=== PATIENT | male | born 1985 | race American Indian/Alaskan Native ===

== ENCOUNTER 2021-06-02 18:40 | Emergency (ER) | payer MEDICAID ==
[2021-06-02] MEDS ORDERED: ASPIRIN 325 MG TAB PO ONE (20:02)
[2021-06-02] MEDS ORDERED: ONDANSETRON 4 MG ODT TAB PO ONE (20:02)
[2021-06-02] MEDS ORDERED: FAMOTIDINE 20 MG/2 ML INJ IV ONE (20:02)
--- NOTE | 2021-06-02 20:31 | XRay Report ---
. XR chest 1V ap INDICATION / CLINICAL INFORMATION: CHEST PAIN. COMPARISON: None available. FINDINGS: SUPPORT DEVICES: None. HEART /PULMONARY VASCULATURE: No significant abnormality. LUNGS / PLEURA: No significant pulmonary or pleural abnormality. No pneumothorax. ADDITIONAL FINDINGS: No significant additional findings. IMPRESSION: 1. No acute findings. Signer Name: Serg Vicente MD Signed: 06/02/2021 8:26 PM Workstation Name: [id number]
[2021-06-02 20:34] LABS: Bilirubin,Urine NEG (Negative); Blood,Urine NEG (Negative); Color,Urine Yellow (Yellow); Mucus,Urine 3+ /HPF
[2021-06-02 21:00] LABS: Basophils # (Auto) 0.1 K/mm3 (0.0-0.1); Basophils % (Auto) 0.6 % (0.0-1.8); Eosinophils # (Auto) 0.1 K/mm3 (0.0-0.4); Eosinophils % (Auto) 0.7 % (0.0-4.3); Hematocrit 45.5 % (35.5-45.6); Hemoglobin 15.2 gm/dl (11.8-15.2); Lymphocytes # (Auto) 2.1 K/mm3 (1.2-5.4); Mean Corpuscular HGB Conc 33 % (32-34); Mean Corpuscular Volume 84 fl (84-94); Monocytes # (Auto) 0.5 K/mm3 (0.0-0.8); Monocytes % (Auto) 5.1 % (0.0-7.3); Platelet Count 291 K/mm3 (140-440); Red Blood Count 5.41 M/mm3 (3.65-5.03); Red Cell Distribution Width 15.1 % (13.2-15.2)
[2021-06-02 21:20] LABS: Alanine Aminotransferase 16 units/L (7-56); Albumin 4.5 g/dL (3.9-5); BUN/Creatinine Ratio 7; Blood Urea Nitrogen 8 mg/dL (9-20); Calcium 9.5 mg/dL (8.4-10.2); Hemolysis Index 90
--- NOTE | 2021-06-02 21:20 | Emergency Department Report ---
ED General Adult HPI - General Chief complaint: Weakness Stated complaint: ANXIETY/HYPERTENSION/DIARRHEA/PANIC Source: patient, EMS Mode of arrival: Stretcher Limitations: No Limitations - History of Present Illness Initial comments: Patient is a 35-year-old -[place] male with a history of hypertension, GERD, and seizures who presents to the ED with complaint of acute onset persistent intermittent nausea, diarrhea, mild dry cough, chest tightness for the last 5 days. Patient states that his symptoms got worse in the last 2 days and he felt scared and afraid. Patient denies dizziness, syncope, chest pain, shortness of breath, abdominal pain, vomiting, fever, chills, sore throat, nasal and sinus congestion, dysuria, urinary frequency and urgency or neck pain. MD Complaint: Nausea, diarrhea, dry cough, chest tightness, anxiety and headache -: Sudden, days(s) (5) Location: chest Severity scale (0 -10): 5 Quality: aching, dull Improves with: none Worsens with: none Associated Symptoms: denies other symptoms, cough, loss of appetite, malaise, nausea/vomiting, shortness of breath. denies: confusion, chest pain, diaphoresis, fever/chills, headaches, rash, seizure, syncope, weakness, other Treatments Prior to Arrival: none - Related Data Home Medications Medication Instructions Recorded Confirmed Last Taken FLUoxetine 20 mg PO QAM 06/02/21 06/02/21 06/02/21 20 mg Keppra 500 mg PO BID 06/02/21 06/02/21 06/02/21 500 mg Omeprazole 20 mg PO QDAY 06/02/21 06/02/21 06/02/21 20 mg Vitamin D2 50 mcg PO QAM 06/02/21 06/02/21 06/02/21 1 Previous Rx's Medication Instructions Recorded Last Taken Type Famotidine [Pepcid] 20 mg PO BID #60 tablet 06/02/21 Unknown Rx Omeprazole 40 mg PO DAILY #30 capsule. 06/02/21 Unknown Rx Ondansetron [Zofran Odt] 4 mg PO Q6HR PRN #15 tab.idalmis 06/02/21 Unknown Rx amLODIPine 10 mg PO DAILY #30 tab 06/02/21 Unknown Rx hydrOXYzine PAMOATE [Vistaril] 25 mg PO Q12HR PRN #60 capsule 06/02/21 Unknown Rx Allergies Allergy/AdvReac Type Severity Reaction Status Date / Time No Known Allergies Allergy Verified 06/02/21 20:56 ED Review of Systems ROS: Stated complaint: ANXIETY/HYPERTENSION/DIARRHEA/PANIC Other details as noted in HPI Constitutional: malaise, weakness. denies: chills, fever Eyes: denies: eye pain, eye discharge, vision change ENT: denies: ear pain, throat pain Respiratory: cough, shortness of breath. denies: wheezing Cardiovascular: denies: chest pain, palpitations Endocrine: no symptoms reported Gastrointestinal: nausea, diarrhea. denies: abdominal pain, vomiting Genitourinary: denies: urgency, dysuria Musculoskeletal: denies: back pain, joint swelling, arthralgia Skin: denies: rash, lesions Neurological: denies: headache, weakness, paresthesias Psychiatric: denies: anxiety, depression Hematological/Lymphatic: denies: easy bleeding, easy bruising ED Past Medical Hx - Medications Home Medications: Home Medications Medication Instructions Recorded Confirmed Last Taken Type FLUoxetine 20 mg PO QAM 06/02/21 06/02/21 06/02/21 History 20 mg Famotidine [Pepcid] 20 mg PO BID #60 tablet 06/02/21 Unknown Rx Keppra 500 mg PO BID 06/02/21 06/02/21 06/02/21 History 500 mg Omeprazole 20 mg PO QDAY 06/02/21 06/02/21 06/02/21 History 20 mg Omeprazole 40 mg PO DAILY #30 capsule. 06/02/21 Unknown Rx Ondansetron [Zofran Odt] 4 mg PO Q6HR PRN #15 tab.rapdis 06/02/21 Unknown Rx Vitamin D2 50 mcg PO QAM 06/02/21 06/02/21 06/02/21 History 1 amLODIPine 10 mg PO DAILY #30 tab 06/02/21 Unknown Rx hydrOXYzine PAMOATE [Vistaril] 25 mg PO Q12HR PRN #60 capsule 06/02/21 Unknown Rx ED Physical Exam - General Limitations: No Limitations General appearance: alert, in no apparent distress - Head Head exam: Present: atraumatic, normocephalic, normal inspection - Eye Eye exam: Present: normal appearance, PERRL, EOMI Pupils: Present: normal accommodation - ENT ENT exam: Present: normal exam, normal orophraynx, mucous membranes moist, TM's normal bilaterally, normal external ear exam - Neck Neck exam: Present: normal inspection, full ROM - Respiratory Respiratory exam: Present: normal lung sounds bilaterally. Absent: respiratory distress, wheezes, rales, rhonchi, chest wall tenderness, accessory muscle use, decreased breath sounds, prolonged expiratory - Cardiovascular Cardiovascular Exam: Present: regular rate, normal rhythm, normal heart sounds. Absent: systolic murmur, diastolic murmur, rubs, gallop - GI/Abdominal GI/Abdominal exam: Present: soft, normal bowel sounds. Absent: tenderness, guarding, rebound, hyperactive bowel sounds, hypoactive bowel sounds, organomegaly - Extremities Exam Extremities exam: Present: normal inspection, full ROM, normal capillary refill - Back Exam Back exam: Present: normal inspection, full ROM. Absent: tenderness, CVA tenderness (R), CVA tenderness (L), muscle spasm, paraspinal tenderness, vertebral tenderness - Neurological Exam Neurological exam: Present: alert, oriented X3, CN II-XII intact, normal gait, reflexes normal - Psychiatric Psychiatric exam: Present: normal affect, normal mood, anxious - Skin Skin exam: Present: warm, dry, intact, normal color. Absent: rash ED Course Vital Signs 06/02/21 06/02/21 19:12 22:50 Temperature 97.6 F Pulse Rate 89 66 Respiratory 18 14 Rate Blood Pressure 160/104 121/73 [Left] O2 Sat by Pulse 98 99 Oximetry ED Medical Decision Making - Lab Data Result diagrams: 06/02/21 20:08 06/02/21 20:08 - Radiology Data Radiology results: report reviewed, image reviewed [address] [address] XRay Report Signed Patient: JAMI IRBY MR#: [id number] 12 : 1985 Acct:[id number] Age/Sex: 35 / M ADM Date: 06/02/21 Loc: ED Attending Dr: Ordering Physician: LUIS DANIEL AMIN Date of Service: 06/02/21 Procedure(s): XR chest routine 2V Accession Number(s): [id number] cc: LUIS DANIEL AMIN Fluoro Time In Minutes: . XR chest 1V ap INDICATION / CLINICAL INFORMATION: CHEST PAIN. COMPARISON: None available. FINDINGS: SUPPORT DEVICES: None. HEART /PULMONARY VASCULATURE: No significant abnormality. LUNGS / PLEURA: No significant pulmonary or pleural abnormality. No pneumoth orax. ADDITIONAL FINDINGS: No significant additional findings. IMPRESSION: 1. No acute findings. Signer Name: Makeda Zamorano MD Signed: 06/02/2021 8:26 PM Workstation Name: [id number] Transcribed By: ADRIANE Dictated By: MAKEDA ZAMORANO MD Electronically Authenticated By: MAKEDA ZAMORANO MD Signed Date/Time: 06/02/212025 DD/ 25 TD/TT: - Medical Decision Making This is a 35-year-old -[place] male with a history of hypertension, GERD, and seizures who presents to the ED with complaint of acute onset persistent intermittent nausea, diarrhea, mild dry cough, chest tightness for the last 5 days. Patient states that his symptoms got worse in the last 2 days and he felt scared and afraid. In the ED, patient is alert and oriented x3 and is not in any distress. Patient is however anxious and hypertensive in triage. Lab test results were reviewed and are all nonactionable. Chest x-ray showed no acute cardiopulmonary abnormalities or pneumonitis. Patient was treated in the ED with antacids, and also given antiemetics and anxiety medication. On reevaluation, patient felt better and was discharged home on medications and advised to follow-up with his primary care physician in 7 to 10 days for reevaluation. Patient was advised return to the ED immediately if symptoms get worse. - Differential Diagnosis Anxiety; GERD; viral gastroenteritis; Critical care attestation.: If time is entered above; I have spent that time in minutes in the direct care of this critically ill patient, excluding procedure time. ED Disposition Clinical Impression: Anxiety as acute reaction to exceptional stress, Nausea, vomiting and diarrhea, Nonspecific syndrome suggestive of viral illness Disposition: 01 HOME / SELF CARE / HOMELESS Is pt being admited?: No Does the pt Need Aspirin: No Condition: Stable Instructions: Nausea and Vomiting, Adult, [id number], Diarrhea, Adult, Easy-t o-Read Additional Instructions: All lab test results were reviewed and are all nonactionable. Chest x-ray showed no acute cardiopulmonary abnormalities or pneumonitis. Therefore take medication with food, drink plenty of fluids and follow-up with your primary care physician in 5 to 7 days for reevaluation. Return to the ED immediately if symptoms get worse. Prescriptions: amLODIPine 10 mg PO DAILY #30 tab Omeprazole 40 mg PO DAILY #30 capsule. Famotidine [Pepcid] 20 mg PO BID #60 tablet hydrOXYzine PAMOATE [Vistaril] 25 mg PO Q12HR PRN #60 capsule PRN Reason: Anxiety Ondansetron [Zofran Odt] 4 mg PO Q6HR PRN #15 tab.rapdis PRN Reason: Nausea Referrals: [facility] [Provider Group] - 3-5 Days Time of Disposition: 23:09 Print Language: ICELANDIC
[2021-06-02] MEDS ORDERED: clonazePAM 0.5 MG TAB PO ONE (21:59)
[2021-06-02 22:51] VITALS: BP 121/73
--- NOTE | 2021-06-03 10:36 | Electrocardiograph Report ---
[facility] Test Date: 2021-06-02 Test Time: 22:35:59 Pat Name: JAMI IRBY Department: Room: Gender: M Ex[employer]: : 1985 Requested By: LION BAUM Order Number: [id number] Reading MD: Daryl Correa Measurements Intervals [place] Rate: 65 P: 62 [place]: 140 QRS: 84 QRSD: 89 T: 7 QT: 387 QTc: 402 Interpretive Statements Sinus rhythm No previous ECG available for comparison Electronically Signed On 06-03-2021 10:36:14 EDT by Daryl Correa
== END 2021-06-03 00:35 | disposition home or self-care (01) ==
LOC: ED 18:40
DX: F41.1 Generalized anxiety disorder (principal); F43.0 Acute stress reaction; B34.9 Viral infection, unspecified; R11.2 Nausea with vomiting, unspecified; R19.7 Diarrhea, unspecified
CPT/HCPCS: 36415; 71046; 80053; 81001; 83690; 84484; 85025; 93005; 96374; 99284; Q0162

== ENCOUNTER 2021-11-28 18:08 | Emergency (ER) | payer MEDICAID ==
[2021-11-28] MEDS ORDERED: SODIUM CHLORIDE 0.9% 1000 ML 1,000 ML IV ONE (18:53)
[2021-11-28] MEDS ORDERED: ASPIRIN 325 MG TAB PO ONE (18:53)
[2021-11-28] MEDS ORDERED: ONDANSETRON 4 MG/2 ML INJ IV ONE (18:54)
[2021-11-28] MEDS ORDERED: MORPHINE 4 MG/1 ML INJ IV ONE (18:54)
--- NOTE | 2021-11-28 19:31 | XRay Report ---
CHEST 2 VIEWS INDICATION / CLINICAL INFORMATION: Chest Pain. COMPARISON: 06/02/2021 FINDINGS: SUPPORT DEVICES: Right TRAUMA REGISTRAR shunt catheter tubing again noted. HEART / MEDIASTINUM: No significant abnormality. LUNGS / PLEURA: No significant pulmonary or pleural abnormality. No pneumothorax. ADDITIONAL FINDINGS: No significant additional findings. IMPRESSION: 1. No acute findings. Signer Name: Loc Waters MD Signed: 11/28/2021 7:27 PM Workstation Name: [id number]
[2021-11-28 19:32] LABS: Basophils % (Auto) 0.6 % (0.0-1.8); Eosinophils % (Auto) 0.5 % (0.0-4.3); Hematocrit 42.2 % (35.5-45.6); Hemoglobin 14.2 gm/dl (11.8-15.2); Lymphocytes # (Auto) 1.4 K/mm3 (1.2-5.4); Lymphocytes % (Auto) 18.4 % (13.4-35.0); Mean Corpuscular HGB Conc 34 % (32-34); Mean Corpuscular Volume 82 fl (84-94); Monocytes # (Auto) 0.4 K/mm3 (0.0-0.8); Monocytes % (Auto) 5.1 % (0.0-7.3); Platelet Count 282 K/mm3 (140-440); Red Blood Count 5.12 M/mm3 (3.65-5.03); Red Cell Distribution Width 14.5 % (13.2-15.2)
[2021-11-28 19:44] LABS: INR 0.97 (0.87-1.13)
[2021-11-28 19:57] LABS: Alanine Aminotransferase 32 units/L (7-56); Albumin 4.3 g/dL (3.9-5); BUN/Creatinine Ratio 7; Blood Urea Nitrogen 8 mg/dL (9-20); Hemolysis Index 11
--- NOTE | 2021-11-28 21:11 | Emergency Department Report ---
ED Chest Pain HPI - General Chief Complaint: Chest Pain Stated Complaint: CHEST PAIN, ANXIETY, HTN Time Seen by Provider: 11/28/21 18:49 Source: patient, EMS Mode of arrival: Stretcher Limitations: No Limitations - History of Present Illness Initial Comments: CHEST PRESSURE/ANXIETY/HTN/PASSING OUT. pt has ran out of his vimpat bid and started getting anxious about having a seizure, generlised pain for few days has been feeling dizzy -: Gradual, days(s) Onset: during rest Pain Location: right chest Pain Radiation: none Severity scale (0 -10): 6 Quality: tightness Consistency: intermittent Improves With: nothing Worsens With: nothing Other Symptoms: denies: cough, fever Treatments Prior to Arrival: none - Related Data Home Medications Medication Instructions Recorded Confirmed Last Taken FLUoxetine 20 mg PO QAM 06/02/21 11/28/21 11/28/21 08:00 Lacosamide [Vimpat] 1 tab PO BID 11/28/21 11/28/21 Unknown Previous Rx's Medication Instructions Recorded Last Taken Type Omeprazole 40 mg PO DAILY #30 capsule. 06/02/21 Unknown Rx amLODIPine 10 mg PO DAILY #30 tab 06/02/21 Unknown Rx hydrOXYzine PAMOATE [Vistaril] 25 mg PO Q12HR PRN #60 capsule 06/02/21 11/28/21 08:00 Rx Lacosamide [Vimpat] 200 mg PO BID #60 11/28/21 Unknown Rx Allergies Allergy/AdvReac Type Severity Reaction Status Date / Time No Known Allergies Allergy Verified 11/28/21 18:12 Heart Score - HEART Score History: Slightly suspicious EKG: Normal Age: < 45 Risk factors: No known risk factors Troponin: < normal limit HEART Score: 0 - EKG Read Time Time EKG Completed: 21:11 EKG Read Time: 21:11 - Critical Actions Critical Actions: 0-3 pts:0.9-1.7%risk of adverse cardiac event.Candidate for discharge ED Review of Systems ROS: Stated complaint: CHEST PAIN, ANXIETY, HTN Other details as noted in HPI ED Past Medical Hx - Past Medical History Previous Medical History?: Yes Hx Hypertension: Yes Hx Seizures: Yes Hx Psychiatric Treatment: Yes (depression, anxiety) - Surgical History Past Surgical History?: Yes Additional Surgical History: cerebral shunt revision 2004 - Social History Smoking Status: Former Smoker Substance Use Type: None - Medications Home Medications: Home Medications Medication Instructions Recorded Confirmed Last Taken Type FLUoxetine 20 mg PO QAM 06/02/21 11/28/21 11/28/21 08:00 History Omeprazole 40 mg PO DAILY #30 capsule. 06/02/21 11/28/21 Unknown Rx amLODIPine 10 mg PO DAILY #30 tab 06/02/21 11/28/21 Unknown Rx hydrOXYzine PAMOATE [Vistaril] 25 mg PO Q12HR PRN #60 capsule 06/02/21 11/28/21 11/28/21 08:00 Rx Lacosamide [Vimpat] 1 tab PO BID 11/28/21 11/28/21 Unknown History Lacosamide [Vimpat] 200 mg PO BID #60 11/28/21 Unknown Rx ED Physical Exam - General Limitations: No Limitations ED Course Vital Signs 11/28/21 11/28/21 11/28/21 18:09 18:22 18:33 Temperature Pulse Rate 91 H 90 Respiratory Rate Blood Pressure Blood Pressure 157/100 [Left] Blood Pressure [Right] O2 Sat by Pulse 99 100 Oximetry 11/28/21 11/28/21 11/28/21 18:37 18:40 18:45 Temperature 98.3 F Pulse Rate 96 H 88 Respiratory 12 9 L 11 L Rate Blood Pressure 159/109 Blood Pressure [Left] Blood Pressure 159/109 [Right] O2 Sat by Pulse 99 100 99 Oximetry 11/28/21 11/28/21 11/28/21 19:07 19:15 19:31 Temperature Pulse Rate 77 82 88 Respiratory 17 12 18 Rate Blood Pressure 153/99 153/99 153/99 Blood Pressure [Left] Blood Pressure [Right] O2 Sat by Pulse 99 99 98 Oximetry 11/28/21 11/28/21 11/28/21 19:45 20:01 20:15 Temperature Pulse Rate 89 85 91 H Respiratory 28 H 16 14 Rate Blood Pressure 153/99 149/97 149/97 Blood Pressure [Left] Blood Pressure [Right] O2 Sat by Pulse 98 99 99 Oximetry 11/28/21 11/28/21 11/28/21 20:31 20:45 21:01 Temperature Pulse Rate 104 H 90 88 Respiratory 20 15 10 L Rate Blood Pressure 149/97 149/97 167/98 Blood Pressure [Left] Blood Pressure [Right] O2 Sat by Pulse 97 98 98 Oximetry 11/28/21 21:07 Temperature 98.0 F Pulse Rate Respiratory Rate Blood Pressure Blood Pressure [Left] Blood Pressure [Right] O2 Sat by Pulse Oximetry ED Medical Decision Making - Lab Data Result diagrams: 11/28/21 19:06 11/28/21 19:06 Critical care attestation.: If time is entered above; I have spent that time in minutes in the direct care of this critically ill patient, excluding procedure time. ED Disposition Clinical Impression: Chest pain Disposition: 01 HOME / SELF CARE / HOMELESS Is pt being admited?: No Does the pt Need Aspirin: No Condition: Stable Instructions: Nonspecific Chest Pain, Adult Prescriptions: Lacosamide [Vimpat] 200 mg PO BID #60 Referrals: GRISELDA VEGAS MD [Primary Care Provider] - 3-5 Days
[2021-11-28] MEDS ORDERED: METOPROLOL TARTRATE 5 MG/5 ML INJ IV ONE (23:10)
[2021-11-29 02:43] VITALS: BP 155/100
== END 2021-11-29 03:17 | disposition home or self-care (01) ==
LOC: ED 18:08
DX: R07.9 Chest pain, unspecified (principal); F41.9 Anxiety disorder, unspecified; I10 Essential (primary) hypertension; R56.9 Unspecified convulsions; Z87.891 Personal history of nicotine dependence; Z98.890 Other specified postprocedural states; Z79.899 Other long term (current) drug therapy
CPT/HCPCS: 36415; 71046; 80053; 83690; 84484; 85025; 85610; 93005; 96361; 96374; 96375; 99284; J2270; J2405; J7030; J9280; Q0162